=== PATIENT | male | born 1960 | race Caucasian/White ===

== ENCOUNTER 2023-02-17 01:19 | Inpatient (IN) | payer MEDICAID ==
[~2023-02-17] VITALS: Ht 172.7 cm; Wt 81.6 kg
[2023-02-17 01:21] VITALS: BP_SYST 162
[2023-02-17 01:42] LABS: BASOPHILS # (AUTO) 0.2 K/uL (0.0-0.2); BASOPHILS % (AUTO) 1.8 % (0.0-2.0); EOSINOPHILS # (AUTO) 0.3 K/uL (0.0-0.4); EOSINOPHILS % (AUTO) 3.5 % (0.0-4.0); HEMATOCRIT 35.5 % (36-54); HEMOGLOBIN 11.7 g/dL (14.0-18.0); LYMPHOCYTES # (AUTO) 1.7 K/uL (1.0-5.5); LYMPHOCYTES % (AUTO) 19.1 % (20.5-51.5); MEAN CORPUSCULAR HEMOGLOBIN 28 pg (27-31); MEAN CORPUSCULAR HGB CONC 33 % (32-36); MEAN CORPUSCULAR VOLUME 85 fL (79.0-98.0); MONOCYTES # (AUTO) 0.7 K/uL (0.0-1.0); MONOCYTES % (AUTO) 7.9 % (1.7-9.3); NEUTROPHILS % (AUTO) 67.7 % (40.0-70.0); PLATELET COUNT (AUTO) 418 K/uL (130-430); RED BLOOD CELL COUNT(AUTO) 4.18 MIL/uL (4.2-6.2); RED CELL DISTRIBUTION WIDTH 14.7 % (9.0-15.0); WHITE BLOOD COUNT (AUTO) 8.8 K/uL (4.8-10.8)
[2023-02-17 02:02] LABS: ALANINE AMINOTRANSFERASE 53 U/L (12-78); ANION GAP 13 (5-15); ASPARTATE AMINOTRANSFERASE 39 U/L (10-37); CALCIUM 8.7 mg/dL (8.4-11.0); CHLORIDE 104 mmol/L (98-107); CREATININE 4.94 mg/dL (0.55-1.30); GFR AFRICAN AMERICAN 15 mL/min (>90); GLUCOSE 188 mg/dL (70-99); TOTAL BILIRUBIN 0.4 mg/dL (0.0-1.0); UREA NITROGEN, BLOOD 44 mg/dL (8-21)
[2023-02-17 02:25] LABS: INR 0.9 (0.80-1.20); PROTHROMBIN TIME 9.6 SECS (9.5-12.5)
[2023-02-17] MEDS ORDERED: EZET10TA30 PO (05:44)
[2023-02-17] MEDS ORDERED: NEU300 PO (05:44)
[2023-02-17] MEDS ORDERED: CLOP75TA32 PO (05:44)
[2023-02-17] MEDS ORDERED: OMEG-158 PO (05:44)
[2023-02-17] MEDS ORDERED: ALBU90AE INH (05:44)
[2023-02-17] MEDS ORDERED: LISI20TA30 PO (05:44)
[2023-02-17] MEDS ORDERED: PRO40 PO (05:44)
[2023-02-17] MEDS ORDERED: FERROUS SULFATE PO (05:44)
[2023-02-17] MEDS ORDERED: POLY15DR31 EACH EYE (05:44)
[2023-02-17] MEDS ORDERED: CALC0.258 PO (05:44)
[2023-02-17] MEDS ORDERED: BUME1TAB8 PO (05:44)
[2023-02-17] MEDS ORDERED: HYDR-4039 PO (05:44)
[2023-02-17] MEDS ORDERED: VITD2000 PO (05:44)
[2023-02-17] MEDS ORDERED: INSU100I26 SQ (05:44)
[2023-02-17] MEDS ORDERED: LIP20 PO (05:44)
[2023-02-17] MEDS ORDERED: NALOXONE HCL 0.4 MG/ML AMP (NARCAN) IVP PRN ×2 (07:30)
[2023-02-17] MEDS ORDERED: ONDANSETRON HCL 4 MG/2 ML VIAL IVP PRN (07:30)
[2023-02-17] MEDS ORDERED: DOCUSATE SODIUM 100 MG CAPSULE PO PRN (07:30)
[2023-02-17] MEDS ORDERED: POTASSIUM CHLORIDE 20 MEQ TAB.PRT.SR PO PRN (07:30)
[2023-02-17] MEDS ORDERED: MORPHINE 2 MG/ML INJ. SYRINGE IVP PRN ×2 (07:30)
[2023-02-17] MEDS ORDERED: ZOLPIDEM TARTRATE 5 MG TABLET PO PRN (07:30)
[2023-02-17] MEDS ORDERED: MAGNESIUM SULFATE 50 ML IV PRN (07:30)
[2023-02-17] MEDS ORDERED: LORazepam 2 MG/ML VIAL IVP PRN (07:30)
[2023-02-17] MEDS ORDERED: ACETAMINOPHEN 325 MG TABLET PO PRN ×2 (07:30→08:00)
[2023-02-17] MEDS ORDERED: MUPIROCIN 2% TOPICAL OINTMENT 22 GM NS PRN (07:30)
[2023-02-17] MEDS ORDERED: IPRATROPIUM/ALBUTEROL SULFATE 3 ML AMPUL.NEB (DUONEB) INH PRN (07:30)
[2023-02-17 08:17] LABS: CHOLESTEROL 227 mg/dL (<200)
[2023-02-17 08:44] VITALS: BP_SYST 110
[2023-02-17 08:56] LABS: BILIRUBIN,URINE NEGATIVE (NEGATIVE); BLOOD, URINE NEGATIVE (NEGATIVE); CLARITY/URINE CLEAR (CLEAR); COLOR,URINE YELLOW (YELLOW); GLUCOSE,URINE 1+ (NEGATIVE); KETONES,URINE NEGATIVE (NEGATIVE); LEUKOCYTE ESTERASE ,URINE NEGATIVE (NEGATIVE); NITRITE, URINE NEGATIVE (NEGATIVE); PROTEIN URINE 3+ (NEGATIVE); UROBILINOGEN,URINE 0.2 (0.2-1.0)
[2023-02-17] MEDS: NACL 0.9% 1,000 ML IV SCH ×2 (09:01→22:03)
[2023-02-17 09:11] LABS: BACTERIA,URINE None Seen /HPF (None Seen); RBC,URINE NONE SEEN /HPF (0-3); WBC,URINE NONE SEEN /HPF (0-3)
[2023-02-17 09:12] LABS: FINE GRANULAR CASTS,URINE 0-10 /LPF (None Seen)
[2023-02-17 09:16] LABS: BARBITURATE, URINE NEGATIVE (NEG <=200); BENZODIAZEPINE, URINE NEGATIVE (NEG <=150); CANNABINOID, URINE NEGATIVE (NEG <=50); COCAINE, URINE NEGATIVE (NEG <=150); METHAMPHETAMINES SCREEN,URINE NEGATIVE (NEG <=500); OPIATE, URINE NEGATIVE (NEG <=100); PHENCYCLIDINE SCREEN,URINE NEGATIVE (NEG <=25); URINE AMPHETAMINE NEGATIVE (NEG <=500); URINE METHADONE NEGATIVE (NEG <=200); URINE OXYCODONE SCREEN NEGATIVE (NEG <=100); URINE PROPOXYPHENE SCREEN NEGATIVE (NEG <=300)
[2023-02-17 09:17] LABS: UR TRICYCLIC ANTIDEPRESSANTS NEGATIVE (NEG <=300)
[2023-02-17 09:46] VITALS: BP_SYST 155
[2023-02-17] MEDS: CHOLECALCIFEROL (VITAMIN D3) 2,000 UNIT TABLET PO SCH (10:32)
[2023-02-17] MEDS: ATORVASTATIN 20 MG TABLET PO SCH (10:33)
[2023-02-17] MEDS: calcitrioL 0.25 MCG CAPSULE PO SCH (10:33)
[2023-02-17] MEDS: GABAPENTIN 300 MG CAPSULE PO SCH ×3 (10:33→20:54)
[2023-02-17] MEDS: CLOPIDOGREL BISULFATE 75 MG TABLET PO SCH (10:33)
[2023-02-17] MEDS: hydrALAZINE HCL 25 MG TABLET PO SCH ×3 (10:33→20:55)
[2023-02-17] MEDS: BUMETANIDE 1 MG TABLET PO SCH ×2 (10:39→22:06)
[2023-02-17 11:48] VITALS: BP_SYST 153
[2023-02-17 18:28] VITALS: BP_SYST 147
[2023-02-17 19:00] VITALS: BP_SYST 137
[2023-02-17] MEDS: INSULIN REGULAR, HUMAN 100 UNITS/ML, 3 ML VIAL (humuLIN R) SUBCUT PRN (20:46)
[2023-02-18 01:24] VITALS: BP_SYST 150
[2023-02-18 06:51] LABS: BASOPHILS # (AUTO) 0.1 K/uL (0.0-0.2); BASOPHILS % (AUTO) 1.4 % (0.0-2.0); EOSINOPHILS # (AUTO) 0.5 K/uL (0.0-0.4); EOSINOPHILS % (AUTO) 6.2 % (0.0-4.0); HEMATOCRIT 29.8 % (36-54); HEMOGLOBIN 9.9 g/dL (14.0-18.0); LYMPHOCYTES # (AUTO) 1.6 K/uL (1.0-5.5); LYMPHOCYTES % (AUTO) 19.3 % (20.5-51.5); MEAN CORPUSCULAR HEMOGLOBIN 28 pg (27-31); MEAN CORPUSCULAR HGB CONC 33 % (32-36); MEAN CORPUSCULAR VOLUME 85 fL (79.0-98.0); MONOCYTES # (AUTO) 0.9 K/uL (0.0-1.0); MONOCYTES % (AUTO) 10.8 % (1.7-9.3); NEUTROPHILS # (AUTO) 5.2 K/uL (1.8-7.7); NEUTROPHILS % (AUTO) 62.3 % (40.0-70.0); PLATELET COUNT (AUTO) 348 K/uL (130-430); RED BLOOD CELL COUNT(AUTO) 3.52 MIL/uL (4.2-6.2); RED CELL DISTRIBUTION WIDTH 15.1 % (9.0-15.0); WHITE BLOOD COUNT (AUTO) 8.4 K/uL (4.8-10.8)
[2023-02-18 07:24] LABS: CALCIUM 8.2 mg/dL (8.4-11.0); CREATININE 5.37 mg/dL (0.55-1.30)
[2023-02-18] MEDS: INSULIN REGULAR, HUMAN 100 UNITS/ML, 3 ML VIAL (humuLIN R) SUBCUT PRN (07:46)
[2023-02-18 08:00] VITALS: BP_SYST 150
[2023-02-18] MEDS: CHOLECALCIFEROL (VITAMIN D3) 2,000 UNIT TABLET PO SCH (09:48)
[2023-02-18] MEDS: BUMETANIDE 1 MG TABLET PO SCH (09:48)
[2023-02-18] MEDS: CLOPIDOGREL BISULFATE 75 MG TABLET PO SCH (09:49)
[2023-02-18] MEDS: ATORVASTATIN 20 MG TABLET PO SCH (09:49)
[2023-02-18] MEDS: GABAPENTIN 300 MG CAPSULE PO SCH ×2 (09:49→15:00)
[2023-02-18] MEDS: calcitrioL 0.25 MCG CAPSULE PO SCH (09:50)
[2023-02-18] MEDS: hydrALAZINE HCL 25 MG TABLET PO SCH ×2 (09:50→15:00)
[2023-02-18 12:00] VITALS: BP_SYST 157
[2023-02-18] MEDS: NACL 0.9% 1,000 ML IV SCH (12:21)
[2023-02-18 13:47] VITALS: BP_SYST 157
== END 2023-02-18 15:15 | disposition home or self-care (01) | DRG 48 ==
LOC: SED 01:19 → STU 03:01 → SMU 09:00 → STU 09:28 → SMU 12:22
PROVIDERS: ADMIT General Practice; ATTEND General Practice
DX: G90.9 Disorder of the autonomic nervous system, unspecified (principal); N17.0 Acute kidney failure with tubular necrosis; I12.0 Hypertensive chronic kidney disease with stage 5 chronic kidney disease or end stage renal disease; G45.9 Transient cerebral ischemic attack, unspecified; E11.22 Type 2 diabetes mellitus with diabetic chronic kidney disease; E11.40 Type 2 diabetes mellitus with diabetic neuropathy, unspecified; N18.5 Chronic kidney disease, stage 5; E78.5 Hyperlipidemia, unspecified; J44.9 Chronic obstructive pulmonary disease, unspecified; R29.701 NIHSS score 1; Z86.73 Personal history of transient ischemic attack (TIA), and cerebral infarction without residual deficits
CPT/HCPCS: 36415; 70450-TC; 71045; 76376; 80048; 80053; 80307; 81000; 82465; 82962; 83037; 83735; 84484; 85025; 85610-TC; 85730-TC; 86886; 86900; 86901; 87081; 94760; 97163-GP; 99291; J1815